=== PATIENT | male | born 1980 | race Hispanic/Latino ===

== ENCOUNTER 2016-06-20 21:49 | Emergency (ER) | payer OTHER ==
[~2016-06-20] VITALS: Ht 180.3 cm; Wt 97.5 kg
--- NOTE | 2016-06-20 21:57 | ED UPPER/LOWER EXTREMITY COMPL ---
History of Present Illness General Chief Complaint: Lower Extremity Problems Stated Complaint: KNEE PAIN S/P SURGERY 06/16 Source: patient Exam Limitations: no limitations Vital Signs & Intake/Output Vital Signs & Intake/Output Vital Signs Date Time Temp Pulse Resp B/P Pulse O2 O2 Flow FiO2 Ox Delivery Rate 06/20 2313 98.2 97 18 158/90 98 Room Air Room Air 06/20 2156 98.0 100 18 170/98 97 Room Air ED Intake and Output 06/21 0000 06/20 1200 Intake Total Output Total Balance Patient 215 lb Weight Allergies Coded Allergies: NO KNOWN ALLERGIES (03/23/13) Triage Nurses Notes Reviewed? yes Onset: Gradual Duration: getting worse Timing: recent history Severity: moderate Severity Numbers: 5 Pain/Injury Location: Right: Leg. HPI: Patient is a 36-year-old male who presents emergency room who is status post day 4 of a tibial osteotomy of the right knee performed by [facility] orthopedic surgeon Dr. Sweeney who presents to emergency room stating that earlier today he was reevaluated by [facility] to the right knee for concerns of swelling redness and pain in which he states that there was no concerns of infection however they were concerned of DVT. Patient is complaining of right below the knee swelling to the foot. Denies any respiratory complaints. (RUFINO MOE) Past History Travel History Traveled to [place] past 21 day No Medical History Any Pertinent Medical History? none Surgical History Surgical History: RIGHT KNEE OSTEOTOMY Psychosocial History What is your primary language [place] Family History Hx Contributory? No (RUFINO MOE) Review of Systems Review of Systems Constitutional: Reports: no symptoms. EENTM: Reports: no symptoms. Respiratory: Reports: no symptoms. Cardiovascular: Reports: see HPI, peripheral edema. Gastrointestinal/Abdominal: Reports: no symptoms. Genitourinary: Reports: no symptoms. Musculoskeletal: Reports: see HPI, muscle pain. Skin: Reports: see HPI. Neurological/Psychological: Reports: no symptoms. Hematologic/Endocrine: Reports: no symptoms. Immunological: Reports: no symptoms. All Other Systems: Reviewed and Negative (RUFINO MOE) Physical Exam Physical Exam General Appearance: no apparent distress, alert, comfortable Neurologic/Tendon: normal sensation, normal motor functions, normal tendon functions, responds to pain, no evidence tendon injury, no pulse deficit Skin: intact Comments: Well-developed well-nourished no apparent distress. HEENT: Atraumatic, extraocular motion intact Neck: Supple, no lymphadenopathy Back: Nontender Respiratory: No respiratory distress Extremities: Right hip nontender full active range of motion Right knee- noted sagittal plane intact anterior aspect well-healing suture with severo intact No surrounding erythema no warmth no active discharge Medial joint line ecchymosis Right leg-noted +2 edema to the foot Dermatomes intact pedal pulse +2 Capillary refill less than 2 seconds Neuro: Alert and oriented x3 Psych: Mood affect normal, normal memory normal judgment. (RUFINO MOE) Progress Differential Diagnosis: arterial insufficiency, cellulitis, compartment syndrome , contusion, dislocation, DVT, fracture, gout, septic arthritis, sprain, tendon injury Plan of Care: Patient's right leg was neurovascularly intact however ultrasound currently is unavailable and which patient will be treated for prophylactic DVT. Patient was strongly advised to return to the emergency room tomorrow for rule out ultrasound and he will comply. No signs of physical exam findings of infection and he was seen by his orthopedic doctor today noting no concerns of infection per patient. DISCUSSED disposition and plan with Dr. HERNANDEZ who is aware (RUFINO MOE) Departure Departure Disposition: HOME OR SELF CARE Condition: Stable Clinical Impression Primary Impression: Right leg swelling Referrals: DINA MOY MD (PCP/Family) Additional Instructions: As discussed return to the emergency room tomorrow to obtain an ultrasound of the right leg to rule out a DVT. YOU had been given a 1 time dose of Lovenox in the emergency room. If symptoms worsen, return to emergency room. Continue to elevate YOUR leg for swelling Departure Forms: Customer Survey General Discharge Information (RUFINO MOE) PA/FLOUR MIXER Co-Sign Statement Statement: ED Attending supervision documentation- [] I saw and evaluated the patient. I have also reviewed all the pertinent lab results and diagnostic results. I agree with the findings and the plan of care as documented in the PA's/FLOUR MIXER's documentation. [X] I have reviewed the ED Record and agree with the PA's/FLOUR MIXER's documentation. [] Additions or exceptions (if any) to the PAs/FLOUR MIXER's note and plan are summarized below: [] (DAVID DIXON,PORSHA)
[2016-06-20 23:13] VITALS: BP 158/90
== END 2016-06-20 23:14 ==
LOC: ERH 21:49
DX: M79.89 Other specified soft tissue disorders (principal)
CPT/HCPCS: 96372; J1650

== ENCOUNTER 2016-06-21 13:26 | Emergency (ER) | payer OTHER ==
[~2016-06-21] VITALS: Ht 177.8 cm; Wt 97.5 kg
[2016-06-21 13:29] VITALS: BP 163/96
--- NOTE | 2016-06-21 13:31 | ED UPPER/LOWER EXTREMITY COMPL ---
History of Present Illness General Chief Complaint: General Adult Stated Complaint: "I NEED AN ULTRASOUND" Source: patient Exam Limitations: no limitations Vital Signs & Intake/Output Vital Signs & Intake/Output Vital Signs Date Time Temp Pulse Resp B/P Pulse O2 O2 Flow FiO2 Ox Delivery Rate 06/21 1329 97.6 99 18 163/96 96 Room Air Allergies Coded Allergies: NO KNOWN ALLERGIES (03/23/13) Triage Nurses Notes Reviewed? yes Onset: Gradual Duration: constant Timing: recent history Severity: moderate Severity Numbers: 5 HPI: Patient is a 36-year-old male who is status post 5 days of a right knee tibial osteotomy performed by [facility] Dr. Sweeney orthopedic surgeon who was evaluated by me yesterday for concerns of right leg swelling and which he was evaluated by the surgeon yesterday was no signs of infection were of concern however DVT was of concern for the orthopedic surgeon. Patient yesterday was neurovascular intact examined by me however ultrasound was not available in which he was given Lovenox prophylactic injection and was advised to present to emergency room today for ultrasound. Patient states that he was elevating his foot yesterday and felt improved. Otherwise patient denies any fever chills and change in symptoms since yesterday's examination. Past History Travel History Traveled to [place] past 21 day No Medical History Any Pertinent Medical History? none Neurological: NONE EENT: NONE Cardiovascular: NONE Respiratory: NONE Gastrointestinal: NONE Hepatic: NONE Renal: NONE Musculoskeletal: NONE Psychiatric: NONE Endocrine: NONE Blood Disorders: NONE Cancer(s): NONE CUT OFF SAW OPERATOR METAL/Reproductive: NONE Surgical History Surgical History: RIGHT KNEE OSTEOTOMY Psychosocial History What is your primary language Nauruan Tobacco Use: Current Daily Use Daily Tobacco Use Amount/Type: => 5 Cigarettes daily ETOH Use: denies use Illicit Drug Use: denies illicit drug use Family History Hx Contributory? No Review of Systems Review of Systems Constitutional: Reports: no symptoms. EENTM: Reports: no symptoms. Respiratory: Reports: no symptoms. Cardiovascular: Reports: see HPI, peripheral edema. Gastrointestinal/Abdominal: Reports: no symptoms. Genitourinary: Reports: no symptoms. Musculoskeletal: Reports: see HPI. Skin: Reports: see HPI. Neurological/Psychological: Reports: no symptoms. Hematologic/Endocrine: Reports: no symptoms. Immunological: Reports: no symptoms. All Other Systems: Reviewed and Negative Physical Exam Physical Exam General Appearance: no apparent distress, alert, comfortable Neurologic/Tendon: normal sensation, normal motor functions, normal tendon functions, responds to pain, no evidence tendon injury Skin: intact Comments: Well-developed well-nourished no apparent distress. HEENT: Atraumatic, extraocular motion intact Neck: Supple, no lymphadenopathy Back: Nontender Respiratory: No respiratory distress Extremities: Right knee noted sagittal incision with intact severo. No active discharge no surrounding erythema no warmth noted swelling and ecchymosis decreased active range of motion noted Right lower extremity noted nonpitting edema pedal pulse +2 capillary refill intact less than 2 seconds dermatomes intact Neuro: Alert and oriented x3 Psych: Mood affect normal, normal memory normal judgment. Progress Differential Diagnosis: arterial insufficiency, cellulitis, compartment syndrome , contusion, dislocation, DVT, fracture, gout, septic arthritis, sprain, tendon injury Plan of Care: Orders Procedure Date/time Status US-UNILATERAL VENOUS DOPPLER 06/21 1331 Active Patient's right lower extremity was neurovascular intact. No evidence of DVT on ultrasound. Patient was given copy of results. Patient was advised to follow up with orthopedic surgeon next week. (BRIAN CABRERA,RUFINO) Diagnostic Imaging: Viewed by Me: Ultrasound. Radiology Impression: no acute abnormality Comments: PATIENT: MARLA LYMAN PRESENT AGE: 36 PATIENT ACCOUNT NO: [id number] : 80 LOCATION: [facility] ORDERING PHYSICIAN: RUFINO CABRERA SERVICE DATE: 06/21/16 EXAM TYPE: US - US-UNILATERAL VENOUS DOPPLER EXAMINATION: US TRIPLEX LOWER EXTREMITY, RIGHT CLINICAL INFORMATION: Right leg swelling. Status post surgery. COMPARISON: None TECHNIQUE: Color-flow triplex imaging with spectral analysis and compression Doppler were performed on the right lower extremity. FINDINGS: Respiratory variation, normal compression and augmented flow are noted throughout the lower extremity. The visualized common femoral vein, superficial femoral vein, profunda femoral vein, popliteal vein and midcalf peroneal and posterior tibial venous segments show no evidence of deep venous thrombosis. A small popliteal fossa cyst measures 4.3 x 0.7 x 0.7 cm. IMPRESSION: Normal triplex scan without evidence of deep venous thrombosis involving the right lower extremity. Small popliteal fossa cyst is identified postoperatively. Departure Departure Disposition: HOME OR SELF CARE Condition: Stable Clinical Impression Primary Impression: Swelling of right knee joint Secondary Impressions: Postoperative pain Referrals: DINA MOY MD (PCP/Family) Additional Instructions: As discussed continue to elevate YOUR foot and continue your treatment protocol per your orthopedic doctor for crutches, knee brace and the Louie wrap for swelling. Follow-up with the orthopedic doctor next week please provide them with the ultrasound results showing a NO EVIDENCE for DVT. If symptoms worsen return to emergency room. Departure Forms: Customer Survey General Discharge Information
--- NOTE | 2016-06-21 14:20 | ULTRASOUND REPORT ---
EXAMINATION: US TRIPLEX LOWER EXTREMITY, RIGHT CLINICAL INFORMATION: Right leg swelling. Status post surgery. COMPARISON: None TECHNIQUE: Color-flow triplex imaging with spectral analysis and compression Doppler were performed on the right lower extremity. FINDINGS: Respiratory variation, normal compression and augmented flow are noted throughout the lower extremity. The visualized common femoral vein, superficial femoral vein, profunda femoral vein, popliteal vein and midcalf peroneal and posterior tibial venous segments show no evidence of deep venous thrombosis. A small popliteal fossa cyst measures 4.3 x 0.7 x 0.7 cm. IMPRESSION: Normal triplex scan without evidence of deep venous thrombosis involving the right lower extremity. Small popliteal fossa cyst is identified postoperatively.
== END 2016-06-21 14:42 ==
LOC: ERH 13:26
DX: M25.461 Effusion, right knee (principal); G89.18 Other acute postprocedural pain